=== PATIENT | female | born 2000 | race African-American/Black ===

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

== ENCOUNTER 2022-06-03 12:46 | Emergency (ER) | payer MEDICAID, OTHER ==
[~2022-06-03] VITALS: Ht 154.9 cm; Wt 50.3 kg
[2022-06-03 13:18] VITALS: BP 134/70
[2022-06-03] MEDS ORDERED: ONDANSETRON 4 MG ODT PO ONE (13:40)
--- NOTE | 2022-06-03 13:48 | NUR ---
pt swabbed for covid(DEMAR) handed to lab
[2022-06-03 14:21] LABS: APPEARANCE,URINE CLEAR (CLEAR); BILIRUBIN,URINE NEGATIVE (NEGATIVE); BLOOD, URINE NEGATIVE (NEGATIVE); COLOR,URINE YELLOW (YELLOW); LEUKOCYTE ESTERASE ,URINE 2+ (NEGATIVE); NITRITE, URINE NEGATIVE (NEGATIVE); PH,URINE 6.5 (5.0-9.0); UGLUCOSE NEGATIVE (NEGATIVE)
[2022-06-03 14:37] LABS: OTHER CASTS, URINE None Seen /LPF (None Seen); RBC,URINE 0-5 /HPF (0-5)
[2022-06-03] MEDS ORDERED: NITR100C7 PO (14:49)
[2022-06-03] MEDS ORDERED: ONDA-188 SL (14:50)
[2022-06-03 16:57] VITALS: BP 134/70
== END 2022-06-03 16:57 | disposition home or self-care (01) ==
LOC: MED 12:46
DX: N39.0 Urinary tract infection, site not specified (principal); Z20.822 Contact with and (suspected) exposure to COVID-19; Z79.899 Other long term (current) drug therapy; Z79.2 Long term (current) use of antibiotics
CPT/HCPCS: 81001; 81025; 87086; 87426; 99283; Q0162